=== PATIENT | male | born 1990 ===

== ENCOUNTER → 2024-09-05 08:22 | Outpatient (CLI) | payer OTHER ==
[2024-09-05 09:15] LABS: HEMATOCRIT 41.7 % (39.0-48.0); HEMOGLOBIN 14.9 g/dL (13-16.00); MEAN CELL VOLUME 84.1 fL (80.0-100.00); MEAN CORPUSCULAR HGB CONC 35.7 g/dl (32.0-36.0); PLATELET COUNT 187 K/uL (150-450); RED BLOOD COUNT 4.96 M/uL (4.00-6.00); RED CELL DISTRIBUTION WIDTH 14.5 % (11.5-14.5)
[2024-09-05 09:34] LABS: PH,URINE 5.5 (5.0-8.0); URINE APPEARANCE Clear; URINE BILIRRUBIN Negative (NEGATIVE); URINE BLOOD Negative; URINE COLOR Yellow; URINE GLUCOSE Negative (NEGATIVE); URINE KETONE Negative (NEGATIVE); URINE LEUKOCYTE Negative; URINE NITRATE Negative; URINE PROTEIN Negative (NEGATIVE); URINE UROBILINOGEN 0.2 E.U./dl
[2024-09-05 09:35] LABS: URINE BACTERIA 12.5 uL (0.0-1933); URINE EPITHELIAL CELLS 3.8 uL (0.0-38.8); URINE WBC 2.4 uL (0.0-23.2)
[2024-09-05 09:38] LABS: URINE RBC 1.8 uL (0.0-20.8)
[2024-09-05 10:03] LABS: ALBUMIN 4.1 gm/dL (3.4-5.0); BILIRUBIN TOTAL 0.74 mg/dL (0.3-1.2); CALCIUM 9.4 mg/dL (8.5-10.1); CHOL HDL RATIO 5.9 (0-5.0); CREATININE SERUM 0.96 mg/dL (0.70-1.30); GFR 89.66; GLOBULINA 3.5 G/DL (2.4-3.5); POTASSIUM 4.18 mEq/L (3.5-5.1); T4 FREE 0.81 NG/ML (0.76-1.46); TOTAL PROTEIN 7.6 gm/dL (6.4-8.2); TSH 0.936 uIU/mL (0.358-3.74)
[2024-09-07 10:47] LABS: hav igm Negative (Negative); hcv Non Reactive (Non Reactive); hep b c Negative (Negative); hep b s ag Negative (Negative)
[2024-09-07 23:04] LABS: chla t Negative (Negative); neiss Negative (Negative)
== END | disposition home or self-care (01) ==
LOC: LAB 08:22
DX: E78.00 Pure hypercholesterolemia, unspecified (principal); Z72.51 High risk heterosexual behavior; Z20.6 Contact with and (suspected) exposure to human immunodeficiency virus [HIV]; E55.9 Vitamin D deficiency, unspecified; Z11.4 Encounter for screening for human immunodeficiency virus [HIV]; Z13.29 Encounter for screening for other suspected endocrine disorder; Z13.1 Encounter for screening for diabetes mellitus

== ENCOUNTER 2024-09-27 07:36 | Outpatient (CLI) | payer OTHER | END 2024-09-27 07:37 | disposition home or self-care (01) | LOC: SONOGRAMA 07:36 | DX: R79.89 Other specified abnormal findings of blood chemistry (principal) ==

== ENCOUNTER → 2025-01-14 10:44 | Outpatient (CLI) | payer OTHER ==
[2025-01-14 12:01] LABS: URINE APPEARANCE Clear; URINE BILIRRUBIN Negative (NEGATIVE); URINE BLOOD Negative; URINE COLOR Yellow; URINE GLUCOSE Negative (NEGATIVE); URINE KETONE Negative (NEGATIVE); URINE LEUKOCYTE Negative; URINE NITRATE Negative; URINE PROTEIN Negative (NEGATIVE); URINE UROBILINOGEN 0.2 E.U./dl
[2025-01-14 12:03] LABS: HEMATOCRIT 44.8 % (39.0-48.0); MEAN CELL VOLUME 86.7 fL (80.0-100.00); MEAN CORPUSCULAR HGB CONC 33.4 g/dl (32.0-36.0); PLATELET COUNT 205 K/uL (150-450); RED BLOOD COUNT 5.17 M/uL (4.00-6.00); RED CELL DISTRIBUTION WIDTH 13.8 % (11.5-14.5)
[2025-01-14 12:05] LABS: URINE WBC 1.8 uL (0.0-23.2)
[2025-01-14 12:51] LABS: URINE BACTERIA 0 uL (0.0-1933); URINE EPITHELIAL CELLS 0.7 uL (0.0-38.8); URINE RBC 1.1 uL (0.0-20.8)
[2025-01-14 13:00] LABS: BILIRUBIN TOTAL 0.59 mg/dL (0.3-1.2); CALCIUM 9.5 mg/dL (8.5-10.1); CHOL HDL RATIO 3.8 (0-5.0); CREATININE SERUM 1.02 mg/dL (0.70-1.30); GFR 83.6; GLOBULINA 3.5 G/DL (2.4-3.5); POTASSIUM 4.36 mEq/L (3.5-5.1); TOTAL PROTEIN 7.5 gm/dL (6.4-8.2)
== END | disposition home or self-care (01) ==
LOC: LAB 10:44
DX: E55.9 Vitamin D deficiency, unspecified (principal); Z20.6 Contact with and (suspected) exposure to human immunodeficiency virus [HIV]

== ENCOUNTER 2025-05-14 08:53 | Outpatient (CLI) | payer OTHER ==
[2025-05-14 09:30] LABS: BASO % 0.5 % (0.1-1.2); EOS # 0.23 (0.04-0.54); EOS % 5.5 % (0.7-7.0); LYMPH # 1.95 (1.18-3.74); LYMPH % 46.5 % (19.3-53.1); MEAN PLATELET VOLUME 10.30 fl (9.4-12.4); MONO # 0.29 (0.24-0.82); MONO % 6.9 % (4.7-12.5); NEUT # 1.69 (1.56-6.13); NEUT % 40.4 % (34.0-71.1); RED CELL DISTRIBUTION WIDTH 11.9 % (11.6-14.4)
[2025-05-14 09:39] LABS: URINE APPEARANCE Clear; URINE BILIRRUBIN Negative (NEGATIVE); URINE BLOOD Negative; URINE COLOR Yellow; URINE GLUCOSE Negative (NEGATIVE); URINE KETONE Negative (NEGATIVE); URINE LEUKOCYTE Negative; URINE NITRATE Negative; URINE PROTEIN Negative (NEGATIVE); URINE UROBILINOGEN 0.2 E.U./dl
[2025-05-14 11:15] LABS: ALT/SGPT 64.0 U/L (12-78); AST/SGOT 21.0 U/L (15-37); BILIRUBIN TOTAL 0.38 mg/dL (0.3-1.2); BUN CREA RATIO 18.0 (7.0-25.0); CHOL HDL RATIO 6.0 (0-5.0); CREATININE SERUM 0.88 mg/dL (0.70-1.30); GFR 99.13; GLOBULINA 3.6 G/DL (2.4-3.5); GLUCOSE FASTING 94.0 mg/dL (65-100); HDL 36.0 mg/dl (40-60); LDL 159.0 mg/dl (0-130); OSMOLALITY SERUM 288.0 MOSM/KG (275-295); VLDL 20.0 (0-39)
[2025-05-14 11:57] LABS: URINE BACTERIA 3.5 uL (0.0-1933); URINE CAST 0.14 uL (0.0-1.40); URINE EPITHELIAL CELLS 0.4 uL (0.0-38.8); URINE RBC 0.5 uL (0.0-20.8); URINE WBC 1.6 uL (0.0-23.2)
[2025-05-15 21:07] LABS: chla t Negative (Negative); neiss Negative (Negative)
== END 2025-05-14 09:03 | disposition home or self-care (01) ==
LOC: LAB 08:53
DX: E78.00 Pure hypercholesterolemia, unspecified (principal); E55.9 Vitamin D deficiency, unspecified; Z72.51 High risk heterosexual behavior; Z20.6 Contact with and (suspected) exposure to human immunodeficiency virus [HIV]